=== PATIENT | female | born 1990 | race African-American/Black ===

== ENCOUNTER 2017-04-27 22:39 | Day surgery (SDC) | payer OTHER, SELFPAY ==
[2017-04-27 23:14] VITALS: BP 114/66; TEMP 98; BMI 31.9
--- NOTE | 2017-04-28 00:44 | PRG ---
DATE OF SERVICE: 04/27/2017 OB ER ENCOUNTER PRIMARY DESKTOP SUPPORT ENGINEER: Dr. Khang Ibrahim at [facility]. CHIEF COMPLAINT: Abdominal pains. HISTORY OF PRESENT ILLNESS: The patient is a 26-year-old G5, P2 female with an intrauterine pregnan cy at 38 weeks and 4 days, who is presenting to Labor and Delivery with uterine contractions that sh e reports have been started earlier today. She does admit that the contractions have spaced some si nce first coming to the hospital for evaluation. The patient denies any leakage of fluid or vaginal bleeding. Patient reported that she was not feeling her baby move as much earlier today, but since coming baby has been moving more now. PAST MEDICAL HISTORY: History of PID and a history of genital herpes. PAST SURGICAL HISTORY: Cholecystectomy. SOCIAL HISTORY: Patient smokes a couple of cigarettes a week. Denies any drug or alcohol use. ALLERGIES: No known drug allergies. MEDICATIONS: vitamins, Valtrex. OB LABS: Blood type is O positive, antibody screen is negative. RPR in the first and third-trimest er negative, HIV in the first and third trimester negative, hepatitis B surface antigen is negative. Rubella immune, GC chlamydia are negative, 1-hour Glucola was 90. Fetus has a reactive NST. REVIEW OF SYSTEMS: Per HPI. PHYSICAL EXAMINATION: VITAL SIGNS: Blood pressure 114/66, heart rate of 80, respiratory rate of 18, temperature 98.0. GENERAL: She appears to be in no acute distress. She is alert and oriented, cooperative and pleasa nt to interact with. HEENT: Normocephalic, atraumatic. LUNGS: Clear to auscultation bilaterally. HEART: Regular rate and rhythm. ABDOMEN: Gravid and soft in between contractions. EXTREMITIES: Nontender, nonedematous. The patient does have low back pain in her lower lumbar norman on, cecal region to palpation. CERVICAL: Cervical was performed by nursing staff, she is 250 and -3 station. I feel heart tracing performed for threatened labor, baseline is noted to be in the 140s with modera te long-term variability, positive accelerations, no decelerations, duration is 30 minutes. Tocomet er showing contractions about every 8 minutes. ASSESSMENT AND PLAN: The patient is 26-year-old G5, P2 female with an intrauterine at 38 weeks and 4 days, who is here having contractions at term. Patient has given the options of dischar ge home with term precautions or revaluation a couple of hours to see if she is making any cervical change. Given her contractions have improved since coming to the hospital for evaluation. The ben ent would like to go home and we will return if her contractions become stronger and closer together or if her water breaks or has other concerns for evaluation. The patient is GBS positive.
== END 2017-04-27 23:55 | disposition home or self-care (01) ==
LOC: L&D/OP 22:39
PROVIDERS: ATTEND Obstetrics & Gynecology
DX: O47.1 False labor at or after 37 completed weeks of gestation (principal); Z3A.38 38 weeks gestation of pregnancy; Z79.899 Other long term (current) drug therapy; Z90.49 Acquired absence of other specified parts of digestive tract; Z87.891 Personal history of nicotine dependence

== ENCOUNTER 2017-05-05 05:30 | Inpatient (IN) | payer OTHER ==
[2017-05-05] MEDS: Lactated Ringer's 1,000 ML IV SCH ×2 (08:00→10:25)
[2017-05-05] MEDS ORDERED: Oxytocin 10 UNITS/ML VIAL ONE (08:10)
[2017-05-05] MEDS ORDERED: Penicillin G Potassium 5 MILL.UNITS VIAL ONE (08:10)
[2017-05-05] MEDS ORDERED: LR 500 ML/Oxytocin 10 units 500 ML ONE (08:10)
[2017-05-05] MEDS ORDERED: Sodium Chloride 0.9% 100 ML ONE (08:12)
[2017-05-05] MEDS ORDERED: Ondansetron HCl/PF 4 MG/2 ML Vial IVP PRN ×2 (08:22→16:30)
[2017-05-05] MEDS ORDERED: Carboprost 250 MCG/ML AMP IM PRN (08:22)
[2017-05-05] MEDS ORDERED: Acetaminophen 500 MG TAB PO PRN (08:22)
[2017-05-05] MEDS ORDERED: Lidocaine 1% (PF) 30 ML VIAL SC PRN (08:22)
[2017-05-05] MEDS ORDERED: Promethazine HCl 25 MG/ML VIAL IM PRN ×2 (08:22→16:30)
[2017-05-05] MEDS ORDERED: Diphenoxylate HCl/Atropine Tablet PO PRN (08:22)
[2017-05-05] MEDS ORDERED: Ibuprofen 800 MG TAB PO PRN (08:22)
[2017-05-05] MEDS ORDERED: HYDROcodone/Acetaminophen 5/325 mg Tablet PO PRN (08:22)
[2017-05-05] MEDS ORDERED: LR / Pitocin 40 units/1000 ml 1,000 ML IV PRN (08:22)
--- NOTE | 2017-05-05 08:27 | PDOC.LDHP ---
Labor and Delivery H&P Chief complaint: scheduled induction HPI: 26 yo @ 39w5d by LMP c/w 10 week sono who presents for elective IOL. Denies any concerns today. Taking Valtrex for HSV suppression, denies any prodromal sx or lesions. Current gestational age (weeks): 39 Due date: 05/07/17 Dating criteria: last menstrual period Grav: 5 Para: 2 OB History Details: 2 term SVDs without complications, largest baby 7lb8oz in 2013 2 SABs. Current complications: other (HSV, on suppression) Abnormal US findings: No Past Medical History: Denies Current medications: pre-maryuri vitamins, other (Valtrex) Previous surgical history: cholecystectomy Allergies/Adverse Reactions: Allergies Allergy/AdvReac Type Severity Reaction Status Date / Time No Known Allergies Allergy Verified 12/17/13 10:00 Social history: tobacco use - Physical Exam Vital signs reviewed and normal: yes General: NAD Heart: RRR Lungs: nonlabored breathing Abdomen: gravid Extremeties: no edema FHT: category 1 (140s, mod sudhakar, +accels, no decels) [place] contractions every: q8-9 min - Vaginal Exam cm dilated: 2 (vertex; no HSV lesion seen on exam ) Effacement: 50% Station: -2 - OB Labs Blood type: O RH: positive Antibody Screen: negative HIV: negative RPR: negative HEPSAg: negative 1 hour GCT: negative GBS: positive Urine drug screen: negative Rubella: immune - Assessment 39w5d IUP Elective IOL H/O HSV, on suppression GBS+ - Plan Plan: admit to L&D, GBS antibiotic prophylaxis, informed consent obtained, anesthesia consult for pain management
[2017-05-05] MEDS ORDERED: LR 500 ML/Oxytocin 10 units 500 ML IV SCH (08:30)
[2017-05-05] MEDS ORDERED: Penicillin G Potassium 5 MILL.UNITS in Sodium Chloride 0.9% 100 ML IVPB SCH (08:30)
[2017-05-05 08:46] VITALS: BMI 31.9
[2017-05-05 08:46] LABS: Mean Platelet Volume 9.3 fL (7.4-10.4); Red Blood Cell (RBC) Count 4.36 mill/uL (4.20-5.40); White Blood Cell (WBC) Count 9.5 thou/uL (4.8-10.8)
[2017-05-05] MEDS ORDERED: FLU VACC QS2017-18 36 mo. & older 0.5 ML SYRINGE IM ONE (09:15)
[2017-05-05] MEDS ORDERED: Fentanyl 4 mcg/Marc 0.1% Cadd 100 ML ONE (10:08)
--- NOTE | 2017-05-05 12:47 | PDOC.LDPN ---
Labor & Delivery Progress Note - Subjective Subjective: comfortable - Objective Vital signs reviewed and normal: yes General: NAD Uterine fundus: non tender Dilation: 6 Effacement: 75% Station: -2 FHT: category 1 (130s, mod sudhakar, +accels, no decels ) [place] contractions every: q2 min AROM: meconium stained fluid - Assessment (1) 39 weeks gestation of Code(s): Z3A.39 - 39 WEEKS GESTATION OF Current Visit: Yes Status : Acute (2) Elective induction of labor planned Code(s): [id number] - Current Visit: Yes Status: Acute Plan: continue plan of care (NICU at delivery due to meconium stained AF .)
[2017-05-05] MEDS ORDERED: LR / Pitocin 40 units/1000 ml 1,000 ML ONE (13:40)
--- NOTE | 2017-05-05 15:17 | PDOC.OPDEL ---
OB Operative/Delivery Note Delivery Dr/Surgeon: Sada Garg DO Pre-Delivery Diagnosis: elective induction Procedure/Post Delivery Dx: spontaneous vaginal delivery Weeks gestation: 39 Anesthesia: epidural - Findings A Sex: female - 1 min: 9 (apgars 8/9) - Additional Findings/Plan Placenta delivered: spontaneous Repaired Obstetrical Laceration: right labial Estimated blood loss: 400 cc Compilations/Other Findings: Infant delivered in DENISE position without difficulty. Terminal meconium noted Post delivery plan: routine recovery
[2017-05-05] MEDS ORDERED: Bisacodyl 10 MG SUPP PR PRN (16:30)
[2017-05-05] MEDS ORDERED: traMADol HCl 50 MG TAB PO PRN (16:30)
[2017-05-05] MEDS ORDERED: Milk Of Magnesia 30 ML UDCUP PO PRN (16:30)
[2017-05-05] MEDS ORDERED: LR / Pitocin 40 units/1000 ml 1,000 ML IV SCH (16:30)
[2017-05-05] MEDS ORDERED: Benzocaine/Menthol 20-0.5% 60 ML CAN TOP PRN (16:30)
[2017-05-05] MEDS ORDERED: Lanolin Ointment 7 GM TUBE TOP PRN (16:30)
[2017-05-05] MEDS: Ferrous Sulfate 325 MG TAB PO SCH (19:25)
[2017-05-05] MEDS ORDERED: Bupivacaine/Epinephrine 0.25% 30 ML VIAL ONE (21:21)
[2017-05-05] MEDS: Docusate (Surfak) 240 MG CAP PO SCH (21:53)
[2017-05-05] MEDS: Ibuprofen 800 MG TAB PO SCH (21:53)
[2017-05-06] MEDS: Ibuprofen 800 MG TAB PO SCH ×3 (06:03→21:14)
[2017-05-06 06:31] LABS: Hematocrit 30.8 % (36.0-47.0); Mean Platelet Volume 8.9 fL (7.4-10.4); Red Blood Cell (RBC) Count 3.65 mill/uL (4.20-5.40); White Blood Cell (WBC) Count 10.7 thou/uL (4.8-10.8)
[2017-05-06] MEDS: Ferrous Sulfate 325 MG TAB PO SCH ×2 (08:21→14:07)
[2017-05-06] MEDS: Docusate (Surfak) 240 MG CAP PO SCH ×2 (08:24→21:14)
[2017-05-06] MEDS: Penicillin G 2.5 MILL.units 2.5 MILL.UNITS in Premix Bag 1 BAG IVPB SCH (09:00)
--- NOTE | 2017-05-06 11:56 | PDOC.PP ---
Post Progress Note Post Day #: 1 Subjective: Doing well. Minimal bleeding. Pain controlled. PO intake tolerated: yes Flatus: yes Ambulation: yes Vital Signs (12 hours) Temp Pulse Resp BP 05/06/17 11:31 98.2 F 80 20 127/58 L 05/06/17 07:59 97.9 F 78 20 104/61 05/06/17 07:45 97.9 F 78 20 05/06/17 04:30 97.9 F 80 16 113/54 L 05/06/17 00:00 98.2 F 78 18 113/81 Weight Weight 186 lb - Physical Examination General: NAD Cardiovascular: RRR Respiratory: non-labored breathing Abdominal: no distention, appropriately TTP Fundus firm & at: below umbilicus Extremities: negative homans (B) Neurological: no gross focal deficits Psychiatric: A&Ox3, normal affect Result Diagrams: 05/06/17 05:01 Additional Labs: Post Labs Blood Type O POSITIVE 05/05/17 08:00 Hep Bs Antigen Non-Reactive S/CO (NonReactive) 05/05/17 08:00 (1) 39 weeks gestation of Code(s): Z3A.39 - 39 WEEKS GESTATION OF Status: Resolved (2) Elective induction of labor planned Code(s): [id number] - Status: Resolved (3) Vaginal delivery Code(s): O80 - ENCOUNTER FOR FULL-TERM UNCOMPLICATED DELIVERY Status: Acute - Assessment/Plan Doing well. Plan for d/c tomorrow due to infant requiring further observation.
[2017-05-07] MEDS: Ibuprofen 800 MG TAB PO SCH (05:59)
[2017-05-07 08:22] VITALS: BP 105/69; TEMP 98.1
--- NOTE | 2017-05-07 08:28 | PDOC.PP ---
Post Progress Note Post Day #: 2 Subjective: Doing well. Denies pain. Minimal lochia. PO intake tolerated: yes Flatus: yes Ambulation: yes Vital Signs (12 hours) Temp Pulse Resp BP 05/07/17 08:22 98.1 F 68 20 105/69 Weight Weight 186 lb - Physical Examination General: NAD Cardiovascular: RRR Respiratory: non-labored breathing Abdominal: no distention, appropriately TTP Fundus firm & at: below umbilicus Extremities: negative homans (B) Neurological: no gross focal deficits Psychiatric: A&Ox3, normal affect Result Diagrams: 05/06/17 05:01 Additional Labs: Post Labs Blood Type O POSITIVE 05/05/17 08:00 Hep Bs Antigen Non-Reactive S/CO (NonReactive) 05/05/17 08:00 (1) 39 weeks gestation of Code(s): Z3A.39 - 39 WEEKS GESTATION OF Status: Resolved (2) Elective induction of labor planned Code(s): [id number] - Status: Resolved (3) Vaginal delivery Code(s): O80 - ENCOUNTER FOR FULL-TERM UNCOMPLICATED DELIVERY Status: Acute - Assessment/Plan Doing well post . Stable for discharge. D/C home today with .
[2017-05-07] MEDS: Ferrous Sulfate 325 MG TAB PO SCH (08:36)
[2017-05-07] MEDS: Docusate (Surfak) 240 MG CAP PO SCH (08:38)
== END 2017-05-07 12:05 | disposition home or self-care (01) | DRG 774 ==
LOC: L&D 06:35 → 3SW 18:00
PROVIDERS: ADMIT Obstetrics & Gynecology; ATTEND Obstetrics & Gynecology
PROC: 10E0XZZ Delivery of Products of Conception, External Approach (ICD-10-PCS; principal; 2017-05-05)
PROC: 0HQ9XZZ Repair Perineum Skin, External Approach (ICD-10-PCS; 2017-05-05)
PROC: 10907ZC Drainage of Amniotic Fluid, Therapeutic from Products of Conception, Via Natural or Artificial Opening (ICD-10-PCS; 2017-05-05)
PROC: 3E0P3VZ Introduction of Hormone into Female Reproductive, Percutaneous Approach (ICD-10-PCS; 2017-05-05)
DX: O70.0 First degree perineal laceration during delivery (principal); O98.32 Other infections with a predominantly sexual mode of transmission complicating childbirth; A60.00 Herpesviral infection of urogenital system, unspecified; O99.824 Streptococcus B carrier state complicating childbirth; Z3A.39 39 weeks gestation of pregnancy; Z37.0 Single live birth
CPT/HCPCS: 36415; 85027; 86780; 86850; 86900; 86901; 87340; 87389; J2540; J2590; J7050; J7120

== ENCOUNTER 2025-03-18 15:59 | Emergency (ER) | payer SELFPAY | END 2025-03-18 17:42 | disposition home or self-care (01) | LOC: ERS 15:59 | DX: U07.1 COVID-19 (principal); H66.91 Otitis media, unspecified, right ear; F17.210 Nicotine dependence, cigarettes, uncomplicated; Z79.52 Long term (current) use of systemic steroids; Z79.2 Long term (current) use of antibiotics | CPT/HCPCS: 87428; 99283 ==

== ENCOUNTER 2025-03-25 19:15 | Emergency (ER) | payer SELFPAY | END 2025-03-25 19:55 | disposition home or self-care (01) | LOC: ERS 19:15 | DX: J06.9 Acute upper respiratory infection, unspecified (principal); F17.210 Nicotine dependence, cigarettes, uncomplicated | CPT/HCPCS: 87428; 99283 ==